=== PATIENT | female | born 1985 | race Caucasian/White ===

== ENCOUNTER → 2020-01-08 15:23 | Outpatient (BNVA) | payer OTHER, SELFPAY | PROVIDERS: PCP Internal Medicine; Referring Provider Internal Medicine; Visit Provider Nurse Practitioner | DX: Z76.89 Persons encountering health services in other specified circumstances (principal) ==

== ENCOUNTER → 2020-10-04 13:24 | Outpatient (BNVA) | payer OTHER, SELFPAY | PROVIDERS: PCP Internal Medicine; Visit Provider Nurse Practitioner ==

== ENCOUNTER → 2021-07-10 07:19 | Outpatient (BNVA) | payer OTHER, SELFPAY | PROVIDERS: PCP Internal Medicine; Referring Provider Internal Medicine; Visit Provider Nurse Practitioner | DX: K21.9 Gastro-esophageal reflux disease without esophagitis (principal) ==

== ENCOUNTER → 2022-08-13 10:50 | Outpatient (BNVA) | payer OTHER, SELFPAY | PROVIDERS: Visit Provider Nurse Practitioner ==

== ENCOUNTER 2023-01-24 20:09 | Emergency (ER) | payer OTHER, SELFPAY ==
--- NOTE | 2023-01-24 | ECG_ITS ---
Test Reason : ALLERGIC Blood Pressure : / mmHG Vent. Rate : 084 BPM Atrial Rate : 084 BPM P-R Int : 140 ms QRS Dur : 084 ms QT Int : 384 ms P-R-T Axes : 063 037 014 degrees QTc Int : 453 ms Normal sinus rhythm RSR' or QR pattern in V1 suggests right ventricular conduction delay Nonspecific ST abnormality Abnormal ECG When compared with ECG of 06-MAR-2011 20:52, No significant changes seen Referred By: Generic ED Physician Electronically Signed By:BERNICE WHITE MD
[2023-01-24 20:12] VITALS: BP 140/82; PULSE 100; RESP 18; TEMP 36.9; O2SAT 100; BMI 28.3
[2023-01-24 21:29] VITALS: PULSE 102; RESP 18; O2SAT 100
[2023-01-24 23:25] VITALS: BP 128/69; PULSE 90; RESP 16; TEMP 36.8; O2SAT 100
--- NOTE | 2023-01-24 23:40 | PC.NURSE ---
pt a&ox4, respirations even and unlabored. pt reports allergic reaction after eating new food with new ingredients. pt reports taking 50mg of benedryl at home and still felt tightness in her chest. on the way to hospital pt reports taking epi pen. pt now denies any allergic reaction symptoms including SOB, chest pain, Hives and lip swelling. Pt normal sinus on tele 78-80. sating 100% room air. pt tongue not swollen and lung sounds clear. iv established at this time.
--- NOTE | 2023-01-25 00:13 | ED_ITS ---
HPI - General Adult General Chief complaint: Allergic Reaction Stated complaint: epi pen/allergic reation Time Seen by Provider: 01/24/23 23:55 Source: patient, family () and RN notes reviewed Mode of arrival: ambulatory Limitations: no limitations History of Present Illness HPI narrative: 37-year-old female presents for evaluation of reported allergic reaction. Patient reports around 6:00 p.m., she was eating tacos She states that within a few minutes she started to feel ?burning in my lips, tongue and throat. She reports that she then started to feel a tightness in her chest She immediately took Benadryl 50 mg orally around 6:00 p.m. Patient states that her symptoms did not really worsen but they did not resolve either, so she called her on-call PCP who recommended she come to the ER for evaluation because she vomited once. Patient started to drive to the ED around 8:00 p.m. and start to feel like her symptoms were worsening, she therefore injected herself with an EpiPen in the left thigh. She is unsure exactly when her symptoms improved greatly, however at the time of my evaluation she states that she feels much better, as slight itching to her palms but no more tightness in her throat or feeling like her throat is swelling. Patient reports that she still has an EpiPen and Benadryl at home The time of my evaluation her symptom onset was approximately 6 hours ago. She has been able to tolerate water since then without any more vomiting or nausea Patient states that she has numerous food allergies but is unsure what her trigger was today Related Data Home Medications Medication Instructions Recorded Confirmed epinephrine 0.3 mg/0.3 mL IM DIRECTED anaphylaxis 10/04/20 injection, auto-injector drospirenone 3 mg-ethinyl 1 tab PO DAILY 07/10/21 estradiol 0.02 mg tablet (CHITO (28)) cetirizine 10 mg capsule (Zyrtec) 10 mg PO DAILY PRN 01/09/22 Previous Rx's Medication Instructions Recorded dicyclomine 10 mg capsule 10 mg PO QID #90 caps 08/13/22 nortriptyline 10 mg capsule 10 mg PO BEDTIME 90 days #90 caps 08/13/22 omeprazole 20 mg capsule,delayed 20 mg PO BID #60 caps 08/13/22 release epinephrine 0.3 mg/0.3 mL 0.3 mg (0.3 mL) IM Q4H PRN 01/25/23 injection, auto-injector (EpiPen anaphylaxis #2 ea 2-Sylvester) prednisone 20 mg tablet 40 mg (2 x 20 mg) PO DAILY #8 tabs 01/25/23 Allergies Allergy/AdvReac Type Severity Reaction Status Date / Time cat dander Allergy Severe asthma Verified 01/24/23 20:17 bernarda Allergy Severe Anaphylaxis Verified 01/24/23 20:17 pistachio nut Allergy Severe Abdominal Verified 01/24/23 20:17 Pain soybean Allergy Mild hives, Verified 01/24/23 20:17 anaphylactic amoxicillin [From AUGMENTIN] Allergy Unknown HIVES Verified 01/24/23 20:17 clavulanic acid Allergy Unknown HIVES Verified 01/24/23 20:17 [From AUGMENTIN] penicillin V Allergy Unknown Hives Verified 01/24/23 20:17 Penicillins [PENICILLINS] Allergy Unknown RASH Verified 01/24/23 20:17 soy [SOY] Allergy Unknown HIVES AND Verified 01/24/23 20:17 THROAT CLOSES tree nut Allergy Anaphylaxis Verified 01/24/23 20:17 Review of Systems Constitutional: Constitutional: Denies chills and Denies fever(s) ENT: Reports throat swelling Cardiovascular: Cardiovascular: Reports chest pain and Denies dyspnea Respiratory: Respiratory: Denies cough and Denies dyspnea Gastrointestinal: Gastrointestinal: Denies abdominal pain, Denies nausea and Denies vomiting Integumentary/Breasts: Skin/Breast: Reports pruritus and Denies rash Allergic/Immunologic: Allergic/Immunologic: Reports throat swelling PMFSH Past Medical History Surgical History No pertinent past surgical history Family History Family History Mother High cholesterol Breast cancer Father Liver failure Sister Pancreatitis Social History Social History Household Members: Spouse and Children Alcohol intake: current Alcohol intake frequency: holidays/special occasions only Patient Tobacco Use Status: Never used Tobacco Smoked in Last 30 Days: No Use of substances other than those prescribed or required for medical reasons: No Advance Directives: No Advance Directives Information Provided: No Physical Exam ED Vital Signs: Vital Signs - 24 hr 01/24/23 20:12 01/24/23 21:29 01/24/23 23:25 Temperature 98.5 F 98.3 F Pulse Rate 100 102 H 90 Respiratory Rate 18 18 16 Blood Pressure 140/82 H 128/69 Pulse Oximetry 100 100 100 Oxygen Delivery Method Room Air Room Air BMI result Body Mass Index 28.3 Const Other: Patient has no rashes, evidence of urticaria. No perioral, oral or retropharyngeal edema. General: healthy appearing, comfortable, no acute distress, alert and awake Nutritional Appearance: well nourished Orientation/consciousness: patient oriented x3 HENMT Head: Yes normocephalic and Yes atraumatic Throat: Yes posterior oropharynx normal Eyes Eyelids: Yes eyelids normal Conjunctivae: conjunctivae normal Sclerae: sclerae normal Corneas: corneas normal Pupils: Equal, round and reactive pupils present EOM: EOMs intact bilaterally Neck Neck: Yes full ROM Resp Other: No audible stridor on auscultation of the trachea or lungs Effort & Inspection: normal respiratory effort, able to speak in complete sentences, no audible wheezes and not labored Auscultation: clear to auscultation bilaterally Cardio Rate: regular rate Rhythm: regular rhythm GI Inspection: No distended Palpation (GI): Soft to palpation, not firm, nontender, no guarding and not rigid Auscultation: normoactive bowel sounds Skin General skin exam: no rashes or lesions noted and elasticity normal Neuro General: patient oriented x3 Cranial nerves: Yes CN's II-XII intact bilaterally, Yes Equal, round and reactive pupils present and Yes Bilaterally intact EOM present Cognition (Neuro): normal cognition Extrem Other: Moving all extremities well without any obvious deformities Medications Administered Discontinued Medications Generic Name Dose Route Start Last Admin Trade Name Freq PRN Reason Stop Dose Admin Diphenhydramine HCl 50 mg 01/25/23 00:07 01/25/23 00:33 Diphenhydramine Hcl 25 Mg Capsule PO 01/25/23 00:08 50 mg ONCE ONE Administration Prednisone 60 mg 01/25/23 00:07 01/25/23 00:33 Prednisone 20 Mg Tablet PO 01/25/23 00:08 60 mg ONCE ONE Administration Medical Decision Making Medical Decision Making MDM Narrative: 37-year-old female presents for evaluation of an allergic reaction. She did not have any objective findings of urticaria/hives or edema, airway involvement or stridor. She self injected her EpiPen prior to arrival. The time I evaluated the patient after she was in the ER waiting room for several hours, she has been asymptomatic for over 3 hours. Her trigger was 6 hours ago and she remains with no evidence of allergic reaction or anaphylaxis. An EKG was completed due to epinephrine injection however the patient has no are complaining of chest pain or shortness of breath. Currently she is asymptomatic and given that she has been asymptomatic for over 3 hours I feel that she is safe for discharge. We will still treat the patient with Benadryl and prednisone as she was reporting sensation of itching in her throat Differential Diagnosis Differential Diagnoses: The differential diagnosis associated with the presentation includes Allergic reaction Anaphylaxis hypersensitivity reaction Angioedema Independent Interpretation I performed an independent interpretation of an: EKG (Sinus rhythm without e vidence of ischemia) Discharge Plan Discharge Clinical Impression: Allergic reaction Patient Disposition: Home, Self-Care Instructions: General Allergic Reaction (ED) Additional Instructions: You may use Benadryl 50 mg every 6 hours as needed for itching, rash Take prednisone 40 mg daily I sent a refill for your EpiPen to your pharmacy Follow-up with your primary doctor to get allergy testing Return for new or worsening symptoms Prescriptions: New epinephrine [EpiPen 2-Sylvester] 0.3 mg/0.3 mL auto-injector 0.3 mg IM Q4H PRN (Reason: anaphylaxis) Qty: 2 0RF prednisone 20 mg tablet 40 mg PO DAILY Qty: 8 0RF No Action epinephrine 0.3 mg/0.3 mL auto-injector IM DIRECTED omeprazole 20 mg capsule,delayed release(DR/EC) 20 mg PO BID Qty: 60 6RF nortriptyline 10 mg capsule 10 mg PO BEDTIME 90 Days Qty: 90 1RF dicyclomine 10 mg capsule 10 mg PO QID Qty: 90 6RF drospirenone-ethinyl estradiol [CHITO (28)] 3-0.02 mg tablet 1 tab PO DAILY Zyrtec 10 mg capsule 10 mg PO DAILY PRN
[2023-01-25] MEDS: diphenhydrAMINE HCL 25 MG CAPSULE 50 MG PO (00:33)
[2023-01-25] MEDS: predniSONE 20 MG TABLET 60 MG PO (00:33)
[2023-01-25 00:48] VITALS: BP 131/76; PULSE 76; RESP 18; O2SAT 98
== END 2023-01-25 01:00 | disposition home or self-care (01) ==
PROVIDERS: Emergency Provider Emergency Medicine
DX: L50.0 Allergic urticaria (principal); R94.31 Abnormal electrocardiogram [ECG] [EKG]; Z79.899 Other long term (current) drug therapy
CPT/HCPCS: 93005; 99283; 99285

== ENCOUNTER 2023-02-12 10:47 | Outpatient (AMB) | payer OTHER, SELFPAY ==
--- NOTE | 2023-02-12 10:55 | MHC.OFFVIS ---
Intake Vital Signs 02/12/23 11:03 Height 5 ft 4 in Weight 170 lb 3.15 oz BMI 29.2 BP 123/77 Blood Pressure Location Lt brachial Position Sitting Pulse 80 Intake Visit Reasons: 6 month follow up Intake Note: Patient presents to in office visit today and 6 months follow up of IBS, and GERD. CC: Patient reports she had an allergy reaction 2 weeks ago and she ended up in the hospital. She states she had to use the epipen and since she's had a lot of trouble with her stomach. She also states that there having some issues in her home and the stress had been affecting her stomach. Infrastructure Tech Required: No Allergies cat dander Allergy (Severe, Verified 02/12/23 11:08) asthma bernarda Allergy (Severe, Verified 02/12/23 11:08) Anaphylaxis pistachio nut Allergy (Severe, Verified 02/12/23 11:08) Abdominal Pain soybean Allergy (Mild, Verified 02/12/23 11:08) hives, anaphylactic amoxicillin [From AUGMENTIN] Allergy (Unknown, Verified 02/12/23 11:08) HIVES clavulanic acid [From AUGMENTIN] Allergy (Unknown, Verified 02/12/23 11:08) HIVES penicillin V Allergy (Unknown, Verified 02/12/23 11:08) Hives Penicillins [PENICILLINS] Allergy (Unknown, Verified 02/12/23 11:08) RASH soy [SOY] Allergy (Unknown, Verified 02/12/23 11:08) HIVES AND THROAT CLOSES tree nut Allergy (Verified 02/12/23 11:08) Anaphylaxis HPI 6 month follow up HPI Details Assessment & Plan (1) Irritable bowel syndrome with diarrhea: Code(s): K58.0 - Irritable bowel syndrome with diarrhea Plan: She has a new food allergy to pistachios which caused severe dyspepsia. It took a couple of week for her stomach to settle down. She had difficulty contacting the office when she requested allergy testing and when she called back someone told her we don't do allergy testing. Her new PCP referred her to the access registrar for food testing. She continues on the omeprazole prn, nortriptyline and bentyl but she rarely needs to use the bentyl. rov 6 mos. (2) GERD (gastroesophageal reflux disease): Code(s): K21.9 - Gastro-esophageal reflux disease without esophagitis Medications: Refilled omeprazole 20 mg PO BID 60 c aps 6RF K21.9 - Gastro-eso phageal reflux dis ease without esoph agitis nortriptyline 10 mg PO BEDTIME 90 days 90 caps 1R F dicyclomine 10 mg PO QID 90 c aps 6RF R10.30 - Lower abd ominal pain, unspe cified TODAY'S VISIT She had another allergic reaction! She was successfully treated in our ER but of course were not 100% sure what the offending agent was. There was a A couple of new ingredients on a box of Taco I am so were not certain. She has pre-existing known allergies to [place] nuts and thus-E owes more recently. At this point I think is prudent to get a RAST food allergy panel to help her navigate her allergies and not have another ER visit if possible. Her primary tried referring her to an marketing automation specialist but they have canceled 3 appointments so this is frustrating for her. Ice think she should continue to keep these appointments for ongoing treatment but will least try to get her started in the right direction. She continues on her dicyclomine, nortriptyline, and omeprazole for control of her other GI symptoms. She says that she has rarely had to use the omeprazole was dicyclomine since starting the nortriptyline which is encouraging. SHE ASKS ABOUT of a new she will colonoscopy screening and says she is curious because she has an aunt who has some sort of colitis and severe bowel problems. She also has osteoporosis secondary medications so this leads me to wonder if it is inflammatory bowel disease. She is going to ask her aunt. In the meantime in addition to the RAST panel will get a CRP, fecal calprotectin and a pancreatic a last taste to try to further her diagnosis and treatment. ROV 6 weeks. [facility] Surgical History No pertinent past surgical history Family History Mother High cholesterol Breast cancer Father Liver failure Sister Pancreatitis Social History Household Members: Spouse and Children Alcohol intake: current Alcohol intake frequency: holidays/special occasions only Patient Tobacco Use Status: Never used Tobacco Review of Systems Const Denies fatigue, Denies fever(s), Denies night sweats, Denies poor appetite and Denies weight loss Eyes Details: glasses Reports requires corrective lenses ENT Reports Normal hearing present, Denies dental pain, Denies dysphagia, Denies hearing loss, Denies mouth pain, Denies odynophagia, Denies throat swelling, Denies tongue swelling and Reports other (Dentition adequate) Card Reports no additional complaints Resp Reports no additional complaints and Reports wheezing GI Denies abdominal pain, Denies melena, Denies bloating, Denies hematochezia, Denies constipation, Denies GI cramping, Denies dysphagia, Denies excessive flatus, Denies early satiety, Reports heartburn, Reports diarrhea, Denies nausea, Denies odynophagia, Denies vomiting and Denies hematemesis Skin/Breast Denies pruritus, Denies lesions, Denies rash and Denies jaundice Neuro Reports Normal hearing present and Denies Abnormal speech present Endo Denies fatigue Aller/Immun Reports urticaria, Denies throat swelling, Denies tongue swelling and Reports wheezing Physical Exam Vital Signs: Last Vital Signs Pulse 80 02/12/23 11:03 BP 123/77 02/12/23 11:03 BMI result Body Mass Index 29.2 Const General: cooperative, no acute distress, well developed and well groomed Nutritional Appearance: average body habitus and well nourished Orientation/consciousness: oriented to person, oriented to place and oriented to time Limitations: No language barrier HEENT Head: Yes normocephalic and Yes atraumatic Eyes General: appearance normal, both eyes and all related structures Pupils: Equal, round and reactive pupils present Neck Neck: Yes normal visual inspection and Yes no lymphadenopathy Thyroid: Thyroid normal Resp Effort & Inspection: normal respiratory effort and able to speak in complete sentences Auscultation: clear to auscultation bilaterally Cardio Rate: regular rate Rhythm: regular rhythm Heart sounds: Normal, physiologic split S2 sound present Peripheral pulses: radial pulses present and posterior tibial pulses present GI Inspection: No distended and No Abdominal panniculus present Palpation (GI): Soft to palpation, nontender, no guarding, not rigid and No hepatosplenomegaly present Percussion: Yes normal to percussion Auscultation: normal bowel sounds Rectal Exam - Female: deferred Skin General skin exam: no rashes or lesions noted, turgor normal, skin not dry, no jaundice, No spider nevi and no striae Rashes: no rashes Nails: normal Neuro General: oriented to person, oriented to place and oriented to time Cranial nerves: Yes Equal, round and reactive pupils present and Yes Normal hearing present Speech: No Abnormal speech present Extrem General: Yes normal to inspection, No clubbing, No cyanosis and No edema Psych Appearance: grossly normal and well kempt Mental Status: mental status grossly normal Speech and movement: Normal speech and movement present Affect: normal affect Attitude: cooperative Thought process: Normal thought process present and not confabulating Thought content: Normal thought content present Insight: Fair insight present (Psych) Judgement: Fair judgement present (Psych) Assessment & Plan Assessment & Plan (1) Irritable bowel syndrome with diarrhea: Code(s): K58.0 - Irritable bowel syndrome with diarrhea (2) GERD (gastroesophageal reflux disease): Code(s): K21.9 - Gastro-esophageal reflux disease without esophagitis (3) Food allergy: Comment: hazlenuts, pistacios so far Code(s): Z91.018 - Allergy to other foods (4) Family history of colitis: Code(s): Z83.79 - Family history of other diseases of the digestive system Plan She had another allergic reaction! She was successfully treated in our ER but of course were not 100% sure what the offending agent was. There was a A couple of new ingredients on a box of Taco I am so were not certain. She has pre-existing known allergies to [place] nuts and thus-E owes more recently. At this point I think is prudent to get a RAST food allergy panel to help her navigate her allergies and not have another ER visit if possible. Her primary tried referring her to an marketing automation specialist but they have canceled 3 appointments so this is frustrating for her. Ice think she should continue to keep these appointments for ongoing treatment but will least try to get her started in the right direction. She continues on her dicyclomine, nortriptyline, and omeprazole for control of her other GI symptoms. She says that she has rarely had to use the omeprazole was dicyclomine since starting the nortriptyline which is encouraging. SHE ASKS ABOUT of a new she will colonoscopy screening and says she is curious because she has an aunt who has some sort of colitis and severe bowel problems. She also has osteoporosis secondary medications so this leads me to wonder if it is inflammatory bowel disease. She is going to ask her aunt. In the meantime in addition to the RAST panel will get a CRP, fecal calprotectin and a pancreatic a last taste to try to further her diagnosis and treatment. ROV 6 weeks. Orders: Orders C Reactive Protein Today K58.0 - Irritable bowel syndrome with diarrhea, Z83.79 - Family history of other diseases of the digestive system Pancreatic Elastase-1 Today K58.0 - Irritable bowel syndrome with diarrhea, Z83.79 - Family history of other diseases of the digestive system Calprotectin, Fecal Today K58.0 - Irritable bowel syndrome with diarrhea, Z83.79 - Family history of other diseases of the digestive system Rast Allergen Today K58.0 - Irritable bowel syndrome with diarrhea, Z91.018 - Allergy to other foods Medications: Refilled omeprazole 20 mg PO BID 60 caps 6RF K21.9 - Gastro-esophageal reflux disease without esophagitis dicyclomine 10 mg PO QID 90 caps 6RF R10.30 - Lower abdominal pain, unspecified nortriptyline 10 mg PO BEDTIME 90 days 90 caps 1RF Coding Level of Care Code Est Pt Level 3 (79681) Diagnoses Irritable bowel syndrome with diarrhea K58.0 GERD (gastroesophageal reflux disease) K21.9 Food allergy Z91.018 Family history of colitis Z83.79
[2023-02-12 11:03] VITALS: BP 123/77; PULSE 80; BMI 29.2
== END 2023-02-12 11:42 | disposition home or self-care (01) ==
PROVIDERS: Visit Provider Nurse Practitioner
DX: K58.0 Irritable bowel syndrome with diarrhea (principal); K21.9 Gastro-esophageal reflux disease without esophagitis; Z91.018 Allergy to other foods; Z83.79 Family history of other diseases of the digestive system
CPT/HCPCS: 99213

== ENCOUNTER → 2023-02-12 10:47 | Outpatient (BNVA) | payer OTHER, SELFPAY | PROVIDERS: Visit Provider Nurse Practitioner ==

== ENCOUNTER 2023-03-19 13:56 | Outpatient (REF) | payer OTHER, SELFPAY ==
[2023-03-19 15:31] LABS: C Reactive Protein 0.84 mg/dL (< or = 0.50)
== END 2023-03-19 13:57 | disposition home or self-care (01) ==
LOC: HO.LAB 13:56
PROVIDERS: PCP Nurse Practitioner Family; Visit Provider Nurse Practitioner
DX: K58.0 Irritable bowel syndrome with diarrhea (principal); Z83.79 Family history of other diseases of the digestive system; Z91.018 Allergy to other foods
CPT/HCPCS: 36415; 86003; 86140